=== PATIENT | female | born 1930 ===

== ENCOUNTER 2016-10-16 11:07 | Outpatient (RCR) | payer MEDICARE, OTHER ==
[~2016-10-16] VITALS: Ht 121.9 cm; Wt 49.4 kg
[2016-10-20] MEDS ORDERED: Lidocaine HCl 2% Jelly 5ml Tube TOPIC ONE (13:00)
== END 2016-10-23 | disposition home or self-care (01) ==
LOC: WCC 11:07
DX: L89.322 Pressure ulcer of left buttock, stage 2 (principal); M05.70 Rheumatoid arthritis with rheumatoid factor of unspecified site without organ or systems involvement
CPT/HCPCS: 11042; 87070; 87181; 87205

== ENCOUNTER 2016-11-20 09:19 | Outpatient (RCR) | payer MEDICARE, OTHER | END 2016-11-23 | disposition home or self-care (01) | LOC: WCC 09:19 | DX: L89.323 Pressure ulcer of left buttock, stage 3 (principal); L89.322 Pressure ulcer of left buttock, stage 2; M05.70 Rheumatoid arthritis with rheumatoid factor of unspecified site without organ or systems involvement | CPT/HCPCS: 11042 ==

== ENCOUNTER 2016-12-04 09:00 | Outpatient (RCR) | payer MEDICARE, OTHER ==
[~2016-12-04] VITALS: Ht 147.3 cm; Wt 49.4 kg
[2016-12-08] MEDS ORDERED: Lidocaine 2% MPF 5ml Vial INJ ONE (14:30)
== END 2016-12-23 | disposition home or self-care (01) ==
LOC: WCC 09:00
DX: L89.323 Pressure ulcer of left buttock, stage 3 (principal); L89.322 Pressure ulcer of left buttock, stage 2; M05.70 Rheumatoid arthritis with rheumatoid factor of unspecified site without organ or systems involvement
CPT/HCPCS: 11042